=== PATIENT | female | born 1955 | race Caucasian/White ===

== ENCOUNTER → 2024-03-10 | Outpatient (CLI) | payer MEDICARE ==
--- NOTE | 2024-03-12 08:09 | MR ---
EXAMINATION TYPE: MR shoulder RT wo con DATE OF EXAM: 03/10/2024 9:39 AM COMPARISON: Outside Bilateral shoulder x-rays March 05, 2024 CLINICAL INDICATION: Female, 68 years old with history of M25.511, Right shoulder pain, began after l ifting heavy object. IV Contrast: cc (None if empty) TECHNIQUE: Multiplanar, multisequence imaging of the right shoulder is performed without contrast. FINDINGS: Rotator Cuff: Intact infraspinatus tendon with only slightly increased signal distally. There is full -thickness retracted tear of the supraspinatus tendon to level of the acromion coronal image 16 with approximately 2.5 cm retraction. Heterogeneous increased signal subscapularis tendon with surrounding fluid. Rotator cuff muscle bulk is preserved. Acromioclavicular Joint: Moderate to severe narrowing and moderate spurring. [id number] superio r capsular hypertrophy. Loss of underlying fat plane of the distal clavicle. Glenohumeral Joint: Moderate to large size joint effusion. Narrowing is seen. No significant spurring . Labrum: The superior labrum is blunted with abnormal signal consistent with tear. Biceps Tendon: The long head of biceps is in normal location within bicipital groove. There is tear f rom the labral anchor with abnormal thickening and increased signal of the extracapsular portion. Bone marrow signal: Subchondral cystic change at the acromioclavicular joint. Other: No additional significant abnormality is appreciated. IMPRESSION: 1. Mild tendinosis of the infraspinatus tendon. More prominent tendinosis of the subscapularis tendon . 2. Full-thickness retracted tear of the subscapularis tendon. 3. Superior labral tear with tear of the labral anchor of the long head of biceps tendon. There is ad ditional tendinosis/partial tearing of the extracapsular portion of the long head of biceps tendon. 4. Moderate to large sized glenohumeral joint effusion. 5. 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 [facility], , 03/12/2024 8:07 AM
== END | disposition home or self-care (01) ==
LOC: RADMRIMAIN 08:36
PROVIDERS: ATTEND Orthopaedic Surgery
DX: M67.813 Other specified disorders of tendon, right shoulder (principal); M75.121 Complete rotator cuff tear or rupture of right shoulder, not specified as traumatic; M25.811 Other specified joint disorders, right shoulder; M19.011 Primary osteoarthritis, right shoulder